=== PATIENT | male | born 1990 | race African-American/Black ===

== ENCOUNTER 2018-06-24 20:11 | Emergency (ER) | payer MEDICAID ==
[~2018-06-24] VITALS: Ht 180.3 cm; Wt 59.0 kg
[~2018-06-24 20:11] MED LIST: FOLI1TAB6 PO; HYDR500C PO; HYDR8TAB46 PO; OXY20CRT PO; PENI500T2 PO
[2018-06-24 22:52] LABS: Urine WBC None Seen /hpf (0 - 3)
[2018-06-24 23:01] LABS: Urine Bacteria NONE SEEN /hpf (None Seen); Urine Blood Negative /uL (Negative)
[2018-06-25 05:20] VITALS: BP 114/30
== END 2018-06-25 04:30 | disposition left against medical advice (07) ==
LOC: ER 20:25
DX: D57.00 Hb-SS disease with crisis, unspecified (principal); Z53.21 Procedure and treatment not carried out due to patient leaving prior to being seen by health care provider
CPT/HCPCS: 81001